=== PATIENT | female | born 1990 | race Caucasian/White ===

== ENCOUNTER 2021-01-20 04:21 | Emergency (ER) | payer BC ==
[~2021-01-20] VITALS: Ht 157.5 cm; Wt 101.8 kg
[2021-01-20 04:34] VITALS: BP 132/88
[2021-01-20] MEDS ORDERED: dexamethasone 4mg tablet PO ONE (05:40)
== END 2021-01-20 05:59 | disposition home or self-care (01) ==
LOC: ER 04:22
DX: J02.9 Acute pharyngitis, unspecified (principal); B34.9 Viral infection, unspecified; R53.83 Other fatigue; R50.9 Fever, unspecified
CPT/HCPCS: 87081; 87880; 99284